=== PATIENT | female | born 1995 | race Caucasian/White ===

== ENCOUNTER 2024-11-05 08:53 | Outpatient (CLI) | payer MEDICAID, SELFPAY ==
--- NOTE | 2024-11-05 09:15 | CRLHL7_ITS ---
For Patients: As a result of the Century Cures Act, medical imaging exams and procedure reports are released immediately into your electronic medical record. You may view this report before your referring provider. If you have questions, please contact your health care provider. INDICATION: First trimester dating and viability. TECHNIQUE: Ultrasound OB pelvis transabdominal and transvaginal. Real-time li-scale imaging of the pelvis was performed. COMPARISON: None. FINDINGS: Intrauterine gestation: Single. heart activity (bpm): 190. [place]-rump length: 2.4 cm. Estimated ultrasound age: 9 weeks, 0 days. BAILEE by ultrasound: 06/10/2025. Yolk sac: Normal. Perigestational hemorrhage: None. Ovaries and adnexa: Unremarkable. Suspicious pelvic fluid collections: None. IMPRESSION: Osei intrauterine cardiac activity. Heart rate is greater than expected for age. Estimated gestational age of 8 weeks, 6 days by LMP concordant with crown-rump length. Dictated by Abbie Toure MD @ 11/07/2024 11:43:59 AM (Electronically Signed)
== END 2024-11-05 08:54 | disposition home or self-care (01) ==
PROVIDERS: Visit Provider Physician Assistant
DX: Z34.91 Encounter for supervision of normal pregnancy, unspecified, first trimester (principal); Z3A.09 9 weeks gestation of pregnancy
CPT/HCPCS: 76817

== ENCOUNTER 2024-11-05 09:56 | Outpatient (CLI) | payer OTHER, SELFPAY ==
[2024-11-05 15:42] LABS: Chlamydia DNA Amplified* NOT DETECTED (No Detected); GC DNA Amplified* NOT DETECTED (No Detected)
== END 2024-11-05 09:57 | disposition home or self-care (01) ==
PROVIDERS: Visit Provider Physician Assistant
DX: O99.281 Endocrine, nutritional and metabolic diseases complicating pregnancy, first trimester (principal); E03.9 Hypothyroidism, unspecified; Z3A.08 8 weeks gestation of pregnancy
CPT/HCPCS: 83020; 83021; 84443; 85660; 86592; 86703; 86704; 86706; 86762; 86787; 86803; 86850; 86900; 86901; 87086; 87340; 87491; 87591

== ENCOUNTER 2025-01-21 13:03 | Outpatient (CLI) | payer OTHER, SELFPAY ==
--- NOTE | 2025-01-21 13:00 | CRLHL7_ITS ---
For Patients: As a result of the 21st Century Cures Act, medical imaging exams and procedure reports are released immediately into your electronic medical record. You may view this report before your referring provider. If you have questions, please contact your health care provider. OB ULTRASOUND SURVEY LMP: 09/04/2024. BAILEE by LMP: 06/11/2025. GA: 19 w, 6 d. INDICATION: Supervision of normal . TECHNIQUE: Real time grayscale imaging of the fetus was performed. Evaluate anatomy. Transabdominal imaging performed. position: Vertex, oblique, transverse, breech, multiple positions. Head to maternal left. Cervix: Visualized. Technique: Transabdominal. Length of closed cervix: 3.8 cm. Placenta/cord: Anterior. Technique: Transabdominal. Placenta tip to internal OS: 6.3 cm. Umbilical Cord: 3-vessel cord. Placenta insertion: Central. Amniotic Fluid: 4.0 cm SDP (greater than/equal to: 2- less than 8 cm). SURVEY: Observed Structures. Calvarium/Spine: Cerebellum: 2.0 cm, 20 w 4 d. Cisterna Magna: 5.0 mm. Nuchal Fold: 4.3 mm. Lateral Ventricle: 5.7 mm. CSP: Yes. Midline Falx: Yes. Choroid Plexus: Yes. Spine: Yes. Abdomen: Stomach: Yes. Abd Cord Insertion: Yes. Urinary Bladder: Yes. Kidneys: Yes. Diaphragm: Yes. Face: Nose/lips: Yes. Orbital view: Yes. Profile: Yes. Limbs: Upper Extremities: Yes. Lower Extremities: Yes. Hands: Yes. Feet: Yes. Vascular: 4-Chamber Heart: Yes. LVOT: Yes. RVOT: Yes. 3VV: Yes. 3VTV: Yes. BPD: 4.8 cm. 20 w, 3 d, 73%. HC: 17.7 cm. 20 w, 1 d, 56%. AC: 14.7 cm. 20 w, 0 d, 49%. FL: 3.2 cm. 19 w, 6 d, 45%. FL/AC ratio: 21.70%. HC/AC ratio: 1.20. heart rate: 154 bpm. age by this US: 20 w, 1 d. BAILEE by this US: 06/09/2025. EFW: 325.63g. Weight: 11 oz. Percentile by BAILEE: 53.5%. IMPRESSION: 1. Concordance of clinical and sonographic dating. 2. Normal anatomic survey. 3. Anterior placenta is present. The border between the placenta and myometrium is indistinct which could suggest accreta. Maternal Medicine consult could be considered. Yovanny Hillman M.D. [employer] [email or web address] jj/Dictated by: Yovanny Hillman MD @ 01/21/2025 4:09:00 PM (Electronically Signed)
== END 2025-01-21 13:04 | disposition home or self-care (01) ==
PROVIDERS: Visit Provider Midwife
DX: Z34.92 Encounter for supervision of normal pregnancy, unspecified, second trimester (principal); Z3A.19 19 weeks gestation of pregnancy; E03.9 Hypothyroidism, unspecified
CPT/HCPCS: 76805

== ENCOUNTER 2025-01-21 14:40 | Outpatient (CLI) | payer OTHER, SELFPAY | END 2025-01-21 14:41 | disposition home or self-care (01) | LOC: NFLDREF 14:40 | PROVIDERS: Visit Provider Advanced Practice Midwife | DX: E03.9 Hypothyroidism, unspecified (principal) | CPT/HCPCS: 84443 ==

== ENCOUNTER 2025-01-29 13:28 | Outpatient (CLI) | payer OTHER, SELFPAY | END 2025-01-29 13:29 | disposition home or self-care (01) | LOC: US 13:29 | PROVIDERS: Visit Provider Advanced Practice Midwife | DX: O43.92 Unspecified placental disorder, second trimester (principal); Z3A.21 21 weeks gestation of pregnancy | CPT/HCPCS: 76811 ==

== ENCOUNTER 2025-03-19 15:04 | Outpatient (CLI) | payer OTHER, SELFPAY | END 2025-03-19 15:05 | disposition home or self-care (01) | LOC: NFLDREF 03-20 13:31 | PROVIDERS: Visit Provider Advanced Practice Midwife | DX: Z34.83 Encounter for supervision of other normal pregnancy, third trimester (principal) | CPT/HCPCS: 86592; 86850 ==

== ENCOUNTER 2025-03-26 08:02 | Outpatient (CLI) | payer OTHER, SELFPAY | END 2025-03-26 08:03 | disposition home or self-care (01) | LOC: NFLDREF 03-31 18:54 | PROVIDERS: Visit Provider Advanced Practice Midwife | DX: O99.810 Abnormal glucose complicating pregnancy (principal) | CPT/HCPCS: 82951; 82952 ==

== ENCOUNTER 2025-04-16 13:24 | Outpatient (CLI) | payer OTHER, SELFPAY | END 2025-04-16 13:25 | disposition home or self-care (01) | PROVIDERS: Visit Provider Advanced Practice Midwife | DX: O99.353 Diseases of the nervous system complicating pregnancy, third trimester (principal); G25.81 Restless legs syndrome | CPT/HCPCS: 83540; 83550; 84443 ==